=== PATIENT | male | born 1975 | race Caucasian/White ===

== ENCOUNTER 2016-10-20 18:57 | Emergency (ER) | payer SELFPAY ==
[2016-10-20 19:07] VITALS: BP 130/78
[2016-10-20 19:27] LABS: HEMATOCRIT 38.3 % (39.0-49.0); MEAN CELL VOLUME 87.7 fl (80-99); MEAN CORPUSCULAR HEMOGLOBIN 29.7 pg (26.0-30.0); MEAN CORPUSCULAR HGB CONC 33.8 pg (28.0-36.0); MEAN PLATELET VOLUME 6.8 fl; PLATELET COUNT 330 Th/cmm (150-400); RED BLOOD COUNT 4.37 Mil/cmm (4.30-5.70); RED CELL DISTRIBUTION WIDTH 17.2 % (11.5-20.0)
[2016-10-20 19:44] LABS: ALB/GLOB RATIO 1.6 (1.0-1.8); ALKALINE PHOSPHATASE 50 U/L (34-104); ANION GAP 7.1 (7.0-16.0); BILIRUBIN,TOTAL 0.3 mg/dL (0.3-1.0); BUN - UREA NITROGEN 5 mg/dL (7-25); BUN/CREATININE RATIO 7.1; CARBON DIOXIDE 26.5 mEq/L (21.0-31.0); CHLORIDE 102 mEq/L (98-107); CREATININE - SERUM 0.7 mg/dL (0.7-1.3); GLUCOSE 146 mg/dL (70-105); POTASSIUM SERUM 3.6 mEq/L (3.5-5.1); SGOT 22 U/L (13-39); SGPT/ALT 19 U/L (7-52); SODIUM SERUM 132 mEq/L (136-145)
[2016-10-20 19:48] LABS: WHITE BLOOD COUNT 20.5 Th/cmm (4.8-10.8)
[2016-10-20 20:11] LABS: BAND NEUTROPHILE 6 % (0-10); BASOPHIL 0 % (0-3); EOSINOPHIL 3 % (0-5); NEUTROPHILS 75 % (40-80); TOTAL CELLS COUNTED 100
[2016-10-20 20:12] LABS: PLATELET ESTIMATE ADEQUATE (NORMAL); PLATELET MORPHOLOGY NORMAL (NORMAL)
--- NOTE | 2016-10-20 20:20 | ED Physician Chart ---
Chief Complaint/HPI - Patient Information Date Seen:: 10/20/16 Time Seen:: 20:14 Chief Complaint:: etoh History of Present Illness:: pt brought in by ems for being etoh intoxicated in public. Was picked up at [facility] earlier said he had abd pain but now denies this and says he has had chest pain earlier but not now. details are very vague. no nausea. no vomiting. not sweaty. no radiation of pain. he is unable to tell me how he came to be in ED. pt admits to slight ammt of etoh today and recent pcp use. he is a smoker. knows of no cary pmh otherwise. Allergies:: Allergies Allergy/AdvReac Type Severity Reaction Status Date / Time Penicillins [PCN] AdvReac Verified 10/20/16 19:07 Vitals:: Vital Signs - 8 hr 10/20/16 10/20/16 19:07 19:08 Temp 97.8 F HR 106 RR 16 BP 130/78 130/78 O2 Sat % 97 Historian:: Patient Review of Systems - Review of Systems General/Constitutional: No fever, No chills, No weight loss, No weakness, No diaphoresis, No edema, No loss of appetite Skin: No skin lesions, No rash, No bruising Head: No headache, No light-headedness Eyes: No loss of vision, No pain, No diplopia ENT: No earache, No nasal drainage, No sore throat, No tinnitus Neck: No neck pain, No swelling, No thyromegaly, No stiffness, No mass noted Cardio Vascular: Chest pain (?), No chest pain, No palpitations, No PND, No orthopnea, No edema Pulmonary: No SOB, No cough, No sputum, No wheezing GI: No nausea, No vomiting, No diarrhea, No pain, No melena, No hematochezia, No constipation, No hematemesis G/U: No dysuria, No frequency, No hematuria Musculoskeletal: No bone or joint pain, No back pain, No muscle pain Endocrine: No polyuria, No polydipsia Psychiatric: No prior psych history, No depression, No anxiety, No suicidal ideation Hematopoietic: No bruising, No lymphadenopathy Allergic/Immuno: No urticaria, No angioedema Neurological: No syncope, No focal symptoms, No weakness, No paresthesia, No headache, No seizure, No dizziness, No confusion, No vertigo Past Medical History - Past Medical History Past Medical History: No significant medical hx Social History: Homeless Medication: Reviewed Family Medical History - Family Member Mother History Unknown: Yes Physical Exam - Physical Examination General/Constitutional: Awake, Well-developed, well-nourished, Alert, No distress, GCS 15, Non-toxic appearing, Ambulatory Other Gen/Cons comments:: pt alert and talkative. not great historian. he does not seem to be worried at all. strong odor of etoh. no edema. nrml s1s2 no m lungs clear w nonlabored breathing Head: Atraumatic Eyes: Lids, conjuctiva normal, PERRL, EOMI Skin: Nl inspection, No rash, No skin lesions, No ecchymosis, Well hydrated, No lymphadenopathy ENMT: External ears, nose nl, Nasal exam nl, Lips, teeth, gums nl Neck: Nontender, Full ROM w/o pain, No JVD, No nuchal rigidity, No bruit, No mass, No stridor Respiratory: Nl effort/Exclusion, Clear to Auscultation, No Wheeze/Rhonchi/Rales Cardio Vascular: RRR, No murmur, gallop, rubs, NL S1 S2 GI: No tenderness/rebounding/guarding, No organomegaly, No hernia, Normal BS's, Nondistended, No mass/bruits, No McBurney tenderness : No CVA tenderness Extremities: No tenderness or effusion, Full ROM, normal strength in all extremities, No edema, Normal digits & nails Neuro/Psych: Alert/oriented, DTR's symmetric, Normal sensory exam, Normal motor strength, Judgement/insight normal, Mood normal, Normal gait, No focal deficits Misc: normal gait, Normal back, No paraspinal tenderness Labs/Radiology/EKG Results - Lab Results Results: Laboratory Tests 10/20/16 10/20/16 10/20/16 19:20 19:20 19:20 WBC 20.5 H* RBC 4.37 Hgb 13.0 L Hct 38.3 L MCV 87.7 MCH 29.7 MCHC Differential 33.8 RDW 17.2 Plt Count 330 MPV 6.8 Neutrophils % Band Neutrophils % 6 Lymphocytes % Monocytes % Eosinophils % Basophils % Neutrophils (Manual) 75 Lymphocytes 8 L Monocytes 8 Eosinophils 3 Basophils 0 Platelet Estimate ADEQUATE Platelet Morphology NORMAL RBC Morph Micro Appear NORMAL Sodium 132 L Potassium 3.6 Chloride 102 Carbon Dioxide 26.5 Anion Gap 7.1 BUN 5 L Creatinine 0.7 Est GFR ( Amer) > 60.0 Est GFR (Non-Af Amer) > 60.0 BUN/Creatinine Ratio 7.1 Glucose 146 H Whole Bld Lactic Acid Calcium 9.0 Total Bilirubin 0.3 AST 22 ALT 19 Alkaline Phosphatase 50 Troponin I 0.01 Total Protein 6.7 Albumin 4.1 L Globulin 2.6 Albumin/Globulin Ratio 1.6 Urine Source Urine Color Urine Clarity Urine pH Ur Specific [place] Urine Protein Urine Glucose (UA) Urine Ketones Urine Blood Urine Nitrate Urine Bilirubin Urine Urobilinogen Ur Leukocyte Esterase Urine RBC Urine WBC Ur Epithelial Cells Urine Bacteria Urine Opiates Screen Urine Methadone Screen Ur Barbiturates Screen Ur Tricyclics Screen Ur Phencyclidine Scrn Amphetamines Screen U Methamphetamines Scrn U Benzodiazepines Scrn U Cocaine Metab Screen U Cannabinoids Screen Ethyl Alcohol 10/20/16 10/20/16 10/20/16 19:20 20:07 21:10 WBC RBC Hgb Hct MCV MCH MCHC Differential RDW Plt Count MPV Neutrophils % Band Neutrophils % Lymphocytes % Monocytes % Eosinophils % Basophils % Neutrophils (Manual) Lymphocytes Monocytes Eosinophils Basophils Platelet Estimate Platelet Morphology RBC Morph Micro Appear Sodium Potassium Chloride Carbon Dioxide Anion Gap BUN Creatinine Est GFR ( Amer) Est GFR (Non-Af Amer) BUN/Creatinine Ratio Glucose Whole Bld Lactic Acid 2.18 H* Calcium Total Bilirubin AST ALT Alkaline Phosphatase Troponin I Total Protein Albumin Globulin Albumin/Globulin Ratio Urine Source Urine Color Urine Clarity Urine pH Ur Specific [place] Urine Protein Urine Glucose (UA) Urine Ketones Urine Blood Urine Nitrate Urine Bilirubin Urine Urobilinogen Ur Leukocyte Esterase Urine RBC Urine WBC Ur Epithelial Cells Urine Bacteria Urine Opiates Screen Urine Methadone Screen Ur Barbiturates Screen Ur Tricyclics Screen Ur Phencyclidine Scrn Amphetamines Screen U Methamphetamines Scrn U Benzodiazepines Scrn U Cocaine Metab Screen U Cannabinoids Screen Ethyl Alcohol < 10 343 H 10/20/16 10/21/16 10/21/16 22:16 00:45 00:45 WBC RBC Hgb Hct MCV MCH MCHC Differential RDW Plt Count MPV Neutrophils % Band Neutrophils % Lymphocytes % Monocytes % Eosinophils % Basophils % Neutrophils (Manual) Lymphocytes Monocytes Eosinophils Basophils Platelet Estimate Platelet Morphology RBC Morph Micro Appear Sodium Potassium Chloride Carbon Dioxide Anion Gap BUN Creatinine Est GFR ( Amer) Est GFR (Non-Af Amer) BUN/Creatinine Ratio Glucose Whole Bld Lactic Acid 2.31 H* Calcium Total Bilirubin AST ALT Alkaline Phosphatase Troponin I Total Protein Albumin Globulin Albumin/Globulin Ratio Urine Source CLEAN C Urine Color YELLOW Urine Clarity CLEAR Urine pH 5.5 Ur Specific [place] 1.53303 L Urine Protein NEGATIVE Urine Glucose (UA) NEGATIVE Urine Ketones NEGATIVE Urine Blood NEGATIVE Urine Nitrate NEGATIVE Urine Bilirubin NEGATIVE Urine Urobilinogen 0.2 Ur Leukocyte Esterase TRACE H Urine RBC 0-2 H Urine WBC 0-2 Ur Epithelial Cells OCCASIONAL Urine Bacteria MODERATE Urine Opiates Screen NEGATIVE Urine Methadone Screen NEGATIVE Ur Barbiturates Screen NEGATIVE Ur Tricyclics Screen NEGATIVE Ur Phencyclidine Scrn NEGATIVE Amphetamines Screen NEGATIVE U Methamphetamines Scrn NEGATIVE U Benzodiazepines Scrn NEGATIVE U Cocaine Metab Screen NEGATIVE U Cannabinoids Screen POSITIVE H Ethyl Alcohol 10/21/16 10/21/16 10/21/16 05:06 05:06 05:06 WBC 19.4 H RBC 4.30 Hgb 12.8 L Hct 37.9 L MCV 88.1 MCH 29.7 MCHC Differential 33.7 RDW 16.9 Plt Count 322 MPV 6.9 Neutrophils % 78.0 Band Neutrophils % Lymphocytes % 10.2 L Monocytes % 9.3 Eosinophils % 2.5 Basophils % 0.0 Neutrophils (Manual) Lymphocytes Monocytes Eosinophils Basophils Platelet Estimate Platelet Morphology RBC Morph Micro Appear Sodium Potassium Chloride Carbon Dioxide Anion Gap BUN Creatinine Est GFR ( Amer) Est GFR (Non-Af Amer) BUN/Creatinine Ratio Glucose Whole Bld Lactic Acid Calcium Total Bilirubin AST ALT Alkaline Phosphatase Troponin I 0.01 Total Protein Albumin Globulin Albumin/Globulin Ratio Urine Source Urine Color Urine Clarity Urine pH Ur Specific [place] Urine Protein Urine Glucose (UA) Urine Ketones Urine Blood Urine Nitrate Urine Bilirubin Urine Urobilinogen Ur Leukocyte Esterase Urine RBC Urine WBC Ur Epithelial Cells Urine Bacteria Urine Opiates Screen Urine Methadone Screen Ur Barbiturates Screen Ur Tricyclics Screen Ur Phencyclidine Scrn Amphetamines Screen U Methamphetamines Scrn U Benzodiazepines Scrn U Cocaine Metab Screen U Cannabinoids Screen Ethyl Alcohol 142 H - Radiology Results Results: cxr nad - EKG Interpretations EKG Time:: 20:25 Rate & Rhythm: nsr 96 [place]: 73 Intervals: nrml Comments:: no st/t wave changes ED Septic Shock - . Is Septic Shock (SBP<90, OR Lactate>4 mmol\L) present?: No - <6hrs of presentation: Vital Signs: Vital Signs - 8 hr 10/20/16 10/20/16 19:07 19:08 Temp 97.8 F HR 106 RR 16 BP 130/78 130/78 O2 Sat % 97 Reassessment (Disposition) - Reassessment Reassessment:: pt had redraw labs at 5am. he was alert and saying he felt ok and I saw him briefly then ...stable w vss. pt ate breakfast and then was walking and said he felt ok and eloped. I was not aware he had left. I have reviewed the 5am labs and trop remains nrml. wbc persists high but sltly better 19k...unclear why so elevated but we did obtain a sousa including blood cx. cxr nrml, ua mild uti (was given rx for which i had written earlier). Reassessment Condition:: Improved - Diagnosis Diagnosis:: 1 etoh intoxication 2 uti - Aftercare/Follow up Instructions Medication Prescribed:: rx macrobid 100bid x 1 wk for uti. advise pt seek help through [facility] or other agency for etoh addiction. rest. see pmd this week for rechk. return if worse. - Patient Disposition Discharge/Transfer:: Elope/AWOL Condition at Disposition:: Improved ED Discharge Plan - Patient Disposition Instructions: Alcohol Intoxication, [id number], Urinary Tract Infection, Easy -to-Read Additional Instructions: STOP DRINKING ALCOHOLIC BEVERAGES take prescribed medications as ordered keep drinking plenty of water to keep urine clear or pale yellow
[2016-10-20] MEDS: Sodium Chloride 0.9% 1,000 ML IV ONE (20:43)
[2016-10-21 01:06] LABS: AMPHETAMINE URINE NEGATIVE (NEGATIVE); BARBITURATES URINE NEGATIVE (NEGATIVE)
[2016-10-21 01:07] LABS: METHADONE URINE NEGATIVE (NEGATIVE)
[2016-10-21 01:15] LABS: URINE BACTERIA MODERATE /hpf (NONE SEEN); URINE BILIRUBIN NEGATIVE (NEGATIVE); URINE BLOOD NEGATIVE (NEGATIVE); URINE COLOR YELLOW; URINE EPITHELIAL CELLS OCCASIONAL /lpf (FEW); URINE GLUCOSE (UA) NEGATIVE (NEGATIVE); URINE KETONE NEGATIVE (NEGATIVE); URINE PH 5.5; URINE PROTEIN NEGATIVE (NEGATIVE); URINE RBC 0-2 /hpf (0-5); URINE UROBILINOGEN 0.2 E.U./dL (0.2 - 1.0); URINE WBC 0-2 /hpf (0-5)
[2016-10-21 05:15] LABS: % EOSINOPHILS 2.5 % (0.0-5.0); % LYMPHOCYTES 10.2 % (20.0-50.0); % MONOCYTES 9.3 % (2.0-10.0); HEMATOCRIT 37.9 % (39.0-49.0); HEMOGLOBIN 12.8 gm/dL (13.2-17.3); MEAN CELL VOLUME 88.1 fl (80-99); MEAN CORPUSCULAR HEMOGLOBIN 29.7 pg (26.0-30.0); MEAN CORPUSCULAR HGB CONC 33.7 pg (28.0-36.0); MEAN PLATELET VOLUME 6.9 fl; NEUTROPHILE ABSOLUTE 15.1 Th/cmm (1.8-8.0); PLATELET COUNT 322 Th/cmm (150-400); RED CELL DISTRIBUTION WIDTH 16.9 % (11.5-20.0)
[2016-10-21 05:27] LABS: WHITE BLOOD COUNT 19.4 Th/cmm (4.8-10.8)
--- NOTE | 2016-10-21 08:28 | Diagnostic Imaging Report ---
Portable chest x-ray History: Pain Allowing for portable technique the heart size is normal. No focal pulmonary parenchymal processes. No hilar or mediastinal abnormalities. Impression: No acute abnormalities.
== END 2016-10-21 06:00 | disposition home or self-care (01) ==
LOC: ER 18:57
DX: F10.129 Alcohol abuse with intoxication, unspecified (principal); N39.0 Urinary tract infection, site not specified; F17.200 Nicotine dependence, unspecified, uncomplicated; Z88.0 Allergy status to penicillin; Z59.0 Homelessness
CPT/HCPCS: 99285; 96374; 93005; 71010; 84484 ×2; 36415 ×2; 83605 ×2; 80307; 85007; 85027; 85025; 81001; 80320 ×3; 80053; 87040; J2405; J7030

== ENCOUNTER 2016-10-21 18:32 | Emergency (ER) | payer SELFPAY ==
[2016-10-21] MEDS ORDERED: Multivitamin Inj 10 ML, Thiamine HCL 100 MG, Magnesium Sulfate 2 GM, Folic Acid 1 MG in... IV ONE ×2 (18:53→19:24)
--- NOTE | 2016-10-21 19:00 | ED Physician Chart ---
Chief Complaint/HPI - Patient Information Date Seen:: 10/21/16 Time Seen:: 18:45 Chief Complaint:: altered mental status History of Present Illness:: [place] He states he drank 3 40 ounce containers of beer today. Patient complained of abdominal pain to the licensed funeral director but stated here he had at most very mild epigastric pain. Patient was here a couple days ago for apparently alcohol intoxication and was given 1 L of normal saline intravenously. Patient is homeless. Allergies:: Allergies Allergy/AdvReac Type Severity Reaction Status Date / Time Penicillins [PCN] AdvReac Verified 10/21/16 18:41 Vitals:: Vital Signs - 8 hr 10/21/16 18:32 Temp 98.0 F HR 107 RR 16 BP 131/82 O2 Sat % 98 Historian:: Patient, EMS Review:: Nurse's Note Reviewed Review of Systems - Review of Systems General/Constitutional: No fever, No chills Skin: No skin lesions Head: No headache Eyes: No loss of vision ENT: No earache Neck: No neck pain, No swelling Cardio Vascular: No chest pain, No palpitations Pulmonary: No SOB GI: No nausea, No vomiting, No diarrhea G/U: No dysuria Musculoskeletal: No bone or joint pain, No back pain, No muscle pain Endocrine: No polyuria, No polydipsia Psychiatric: No prior psych history, Other Hematopoietic: No bruising Allergic/Immuno: No urticaria Neurological: No syncope, No focal symptoms Past Medical History - Past Medical History Past Medical History: No significant medical hx Family History: None Social History: Smoker, Alcohol Surgical History: Hernia, other (left inguinal hernia repair) Psychiatricy History: None Medication: None Family Medical History - Family Member Mother History Unknown: Yes Physical Exam - Physical Examination General/Constitutional: Well-developed, well-nourished, Alert, No distress Head: Atraumatic Eyes: Lids, conjuctiva normal, PERRL Skin: Nl inspection, No rash, No skin lesions, No ecchymosis ENMT: External ears, nose nl, TM canals nl, Nasal exam nl, Lips, teeth, gums nl Neck: Nontender Respiratory: Nl effort/Exclusion, Clear to Auscultation, No Wheeze/Rhonchi/Rales Cardio Vascular: RRR, No murmur, gallop, rubs GI: No organomegaly, Normal BS's, Nondistended, No mass/bruits, No McBurney tenderness Other GI comments:: Minimal epigastric tenderness : No CVA tenderness Extremities: No tenderness or effusion, No edema ED Septic Shock - . Is Septic Shock (SBP<90, OR Lactate>4 mmol\L) present?: No - <6hrs of presentation: Vital Signs: Vital Signs - 8 hr 10/21/16 18:32 Temp 98.0 F HR 107 RR 16 BP 131/82 O2 Sat % 98 Reassessment (Disposition) - Reassessment Reassessment Condition:: Improved - Diagnosis Diagnosis:: Acute and chronic alcohol abuse; alcohol intoxication - Aftercare/Follow up Instructions Aftercare/Follow-Up Instructions:: Refer to Discharge Instructions - Patient Disposition Discharge/Transfer:: Home Condition at Disposition:: Stable, Improved
[2016-10-21] MEDS ORDERED: Thiamine 100 mg/mL 2mL Vial ONE (19:12)
[2016-10-21] MEDS ORDERED: Multivitamin Inj 10 mL Vial IV ONE (19:12)
[2016-10-21] MEDS ORDERED: Magnesium Sulfate 1 gm/2 mL 2mL Vial IV ONE (19:13)
[2016-10-21 20:07] LABS: % BASOPHILS 1.4 % (0.0-2.0); % EOSINOPHILS 3.7 % (0.0-5.0); % LYMPHOCYTES 17.6 % (20.0-50.0); % MONOCYTES 7.2 % (2.0-10.0); % NEUTROPHILS 70.1 % (40.0-80.0); HEMATOCRIT 35.5 % (39.0-49.0); HEMOGLOBIN 12.2 gm/dL (13.2-17.3); MEAN CELL VOLUME 85.9 fl (80-99); MEAN CORPUSCULAR HEMOGLOBIN 29.6 pg (26.0-30.0); MEAN CORPUSCULAR HGB CONC 34.5 pg (28.0-36.0); MEAN PLATELET VOLUME 6.7 fl; NEUTROPHILE ABSOLUTE 10.9 Th/cmm (1.8-8.0); PLATELET COUNT 315 Th/cmm (150-400); RED BLOOD COUNT 4.13 Mil/cmm (4.30-5.70)
[2016-10-21 20:11] LABS: WHITE BLOOD COUNT 15.5 Th/cmm (4.8-10.8)
[2016-10-21 20:18] LABS: ANION GAP 7.5 (7.0-16.0); BUN - UREA NITROGEN 7 mg/dL (7-25); BUN/CREATININE RATIO 11.7; CHLORIDE 105 mEq/L (98-107); CREATININE - SERUM 0.6 mg/dL (0.7-1.3); GLUCOSE 120 mg/dL (70-105); MAGNESIUM 2.2 mg/dL (1.9-2.7); POTASSIUM SERUM 3.5 mEq/L (3.5-5.1); SODIUM SERUM 134 mEq/L (136-145)
== END 2016-10-22 06:45 | disposition home or self-care (01) ==
LOC: ER 18:32
DX: F10.129 Alcohol abuse with intoxication, unspecified (principal); F17.200 Nicotine dependence, unspecified, uncomplicated; Z88.0 Allergy status to penicillin; Z59.0 Homelessness
CPT/HCPCS: 99285; 96365; 96366; 36415; 83605; 85025; 80320; 83690; 83735; 80048; J3411; J3475; J7030; X6226; X6598; Z7502

== ENCOUNTER 2016-10-22 19:01 | Emergency (ER) | payer SELFPAY ==
[2016-10-22 19:37] LABS: % BASOPHILS 1.6 % (0.0-2.0); % EOSINOPHILS 5.9 % (0.0-5.0); % LYMPHOCYTES 23.9 % (20.0-50.0); % MONOCYTES 4.8 % (2.0-10.0); % NEUTROPHILS 63.8 % (40.0-80.0); HEMATOCRIT 38.4 % (39.0-49.0); HEMOGLOBIN 12.9 gm/dL (13.2-17.3); MEAN CELL VOLUME 88.4 fl (80-99); MEAN CORPUSCULAR HEMOGLOBIN 29.7 pg (26.0-30.0); MEAN CORPUSCULAR HGB CONC 33.6 pg (28.0-36.0); MEAN PLATELET VOLUME 6.7 fl; NEUTROPHILE ABSOLUTE 7.1 Th/cmm (1.8-8.0); PLATELET COUNT 318 Th/cmm (150-400); RED BLOOD COUNT 4.35 Mil/cmm (4.30-5.70)
[2016-10-22 19:47] LABS: INR 0.89 (0.5-1.4); PROTHROMBIN TIME (TEST) 9.1 SECONDS (9.5-11.5)
[2016-10-22 19:50] LABS: WHITE BLOOD COUNT 11.2 Th/cmm (4.8-10.8)
[2016-10-22 19:51] LABS: ALB/GLOB RATIO 1.4 (1.0-1.8); ALKALINE PHOSPHATASE 60 U/L (34-104); ANION GAP 8.1 (7.0-16.0); BILIRUBIN,TOTAL 0.3 mg/dL (0.3-1.0); BUN - UREA NITROGEN 5 mg/dL (7-25); BUN/CREATININE RATIO 8.3; CARBON DIOXIDE 26.6 mEq/L (21.0-31.0); CHLORIDE 105 mEq/L (98-107); CREATININE - SERUM 0.6 mg/dL (0.7-1.3); GLUCOSE 99 mg/dL (70-105); POTASSIUM SERUM 3.7 mEq/L (3.5-5.1); SGOT 18 U/L (13-39); SGPT/ALT 15 U/L (7-52); SODIUM SERUM 136 mEq/L (136-145)
--- NOTE | 2016-10-22 19:56 | ED Physician Chart ---
Chief Complaint/HPI - Patient Information Date Seen:: 10/22/16 Time Seen:: 19:31 Chief Complaint:: ABDOMINAL PAIN History of Present Illness:: THIS IS AN ALCOHOLIC THAT WAS FOUND DOWN IN FRONT OF [employer] [facility] AND INTOXICATED WITH ALCOHOL C/O ABDOMINAL PAIN. THIS PATIENT WAS HERE LAST NIGHT WITH THE SAME PROBLEM AND DISCHARGED THIS AM. HE IS UNRELIABLE AND THE HISTORY WITH REVIEW OF SYSTEMS ARE NO POSSIBLE AT THIS TIME. Allergies:: Allergies Allergy/AdvReac Type Severity Reaction Status Date / Time Penicillins [PCN] AdvReac Verified 10/21/16 18:41 Vitals:: Vital Signs - 8 hr 10/22/16 19:26 Temp 98.0 F HR 85 RR 20 BP 119/80 O2 Sat % 93 Historian:: Patient, EMS Review:: Nurse's Note Reviewed Review of Systems - Review of Systems General/Constitutional: No fever, No chills, No weight loss, No weakness, No diaphoresis, No edema, No loss of appetite, Other (PT CANNOT ) Skin: No skin lesions, No rash, No bruising Head: No headache, No light-headedness Eyes: No loss of vision, No pain, No diplopia ENT: No earache, No nasal drainage, No sore throat, No tinnitus Neck: No neck pain, No swelling, No thyromegaly, No stiffness, No mass noted Cardio Vascular: No chest pain, No palpitations, No PND, No orthopnea, No edema Pulmonary: No SOB, No cough, No sputum, No wheezing GI: No nausea, No vomiting, No diarrhea, No pain, No melena, No hematochezia, No constipation, No hematemesis G/U: No dysuria, No frequency, No hematuria Musculoskeletal: No bone or joint pain, No back pain, No muscle pain Endocrine: No polyuria, No polydipsia Psychiatric: No prior psych history, No depression, No anxiety, No suicidal ideation Hematopoietic: No bruising, No lymphadenopathy Allergic/Immuno: No urticaria, No angioedema Neurological: No syncope, No focal symptoms, No weakness, No paresthesia, No headache, No seizure, No dizziness, No confusion, No vertigo Past Medical History - Past Medical History Obtainable: No Family Medical History - Family Member Mother History Unknown: Yes Physical Exam - Physical Examination General/Constitutional: Well-developed, well-nourished, Alert, No distress, GCS 15, Non-toxic appearing, Ambulatory Other Gen/Cons comments:: LETHARGIC AND DISORIENTED. Head: Atraumatic Eyes: Lids, conjuctiva normal, PERRL, EOMI Skin: Nl inspection, No rash, No skin lesions, No ecchymosis, Well hydrated, No lymphadenopathy ENMT: External ears, nose nl, Nasal exam nl, Lips, teeth, gums nl Neck: Nontender, Full ROM w/o pain, No JVD, No nuchal rigidity, No bruit, No mass, No stridor Respiratory: Nl effort/Exclusion, Clear to Auscultation, No Wheeze/Rhonchi/Rales Cardio Vascular: RRR, No murmur, gallop, rubs, NL S1 S2 GI: No tenderness/rebounding/guarding, No organomegaly, No hernia, Normal BS's, Nondistended, No mass/bruits, No McBurney tenderness : No CVA tenderness Extremities: No tenderness or effusion, Full ROM, normal strength in all extremities, No edema, Normal digits & nails Neuro/Psych: Alert/oriented, DTR's symmetric, Normal sensory exam, Normal motor strength, Judgement/insight normal, Mood normal, Normal gait, No focal deficits Misc: normal gait, Normal back, No paraspinal tenderness Labs/Radiology/EKG Results - Lab Results Results: Laboratory Tests 10/22/16 19:28 WBC 11.2 H D RBC 4.35 Hgb 12.9 L Hct 38.4 L MCV 88.4 MCH 29.7 MCHC Differential 33.6 RDW 17.0 Plt Count 318 MPV 6.7 Neutrophils % 63.8 Lymphocytes % 23.9 Monocytes % 4.8 Eosinophils % 5.9 H Basophils % 1.6 Assessment - Assessment General Assessment: this patient has improved after sleeping all night and is able to walk and think well enough to go home this am. ED Septic Shock - . Is Septic Shock (SBP<90, OR Lactate>4 mmol\L) present?: No - <6hrs of presentation: Vital Signs: Vital Signs - 8 hr 10/22/16 19:26 Temp 98.0 F HR 85 RR 20 BP 119/80 O2 Sat % 93 Reassessment (Disposition) - Reassessment Reassessment Condition:: Improved - Diagnosis Diagnosis:: alcohol intoxication - Aftercare/Follow up Instructions Aftercare/Follow-Up Instructions:: Counseled pt regarding lab results/diagnosis & need follow up, Refer to Discharge Instructions, Counseled pt & family regarding lab results/diagnosis & need follow up - Patient Disposition Discharge/Transfer:: Home Condition at Disposition:: Improved
== END 2016-10-23 07:50 | disposition left against medical advice (07) ==
LOC: ER 19:01
DX: F10.129 Alcohol abuse with intoxication, unspecified (principal); Z88.0 Allergy status to penicillin; Z59.0 Homelessness
CPT/HCPCS: 36415-UA; 80053-TC; 80320-TC; 84484-TC; 85025-TC; 85610-TC; Z7502

== ENCOUNTER 2016-10-23 16:52 | Emergency (ER) | payer SELFPAY ==
[2016-10-23 17:02] VITALS: BP 118/84
--- NOTE | 2016-10-23 17:29 | ED Physician Chart ---
Chief Complaint/HPI - Patient Information Date Seen:: 10/23/16 Time Seen:: 17:15 Chief Complaint:: occasional pain with urination today History of Present Illness:: Patient is brought back to the emergency room by ambulance for complaint of occasional burning with urination. he was seen earlier in the emergency room today for alcohol intoxication and he remains intoxicated at this presentation. He is able to converse however he is scant on detail. He denies any and all other symptoms except for "I was told I have a urinary tract infection when I was in the emergency room and it posadas when I pee sometimes". Review of prior charting during prior exam today does not reveal any evaluation for urinary tract infection on the prior presentation. Allergies:: Allergies Allergy/AdvReac Type Severity Reaction Status Date / Time Penicillins [PCN] AdvReac Verified 10/21/16 18:41 Vitals:: Vital Signs - 8 hr 10/23/16 10/23/16 17:02 17:04 Temp 98.9 F HR 100 RR 17 BP 118/84 118/84 O2 Sat % 96 Historian:: Patient, EMS, Medical Records Review:: Nurse's Note Reviewed, Old Chart Reviewed Review of Systems - Review of Systems General/Constitutional: Fever (the patient denies any other complaint other than occasional pain with urination. Specifically he denies fever chills prior STD urethral discharge unusual rashes back pain or history of UTI or urethral instrumentation.) Past Medical History - Past Medical History Obtainable: No (patient has altered mental status for mild alcohol intoxication) Social History: Homeless Family Medical History - Family Member Mother History Unknown: Yes Physical Exam - Physical Examination General/Constitutional: Awake, Well-developed, well-nourished, Alert, No distress, GCS 15 Head: Atraumatic Eyes: Lids, conjuctiva normal, EOMI Skin: Nl inspection ENMT: Oropharynx nl Neck: Full ROM w/o pain Respiratory: Clear to Auscultation Cardio Vascular: RRR GI: No tenderness/rebounding/guarding, No hernia, Normal BS's, Nondistended : NL external genitalia, No discharge Extremities: Full ROM Neuro/Psych: Alert/oriented ([id number] alcohol intoxication) Labs/Radiology/EKG Results - Lab Results Results: Urinalysis with small amount of leukocyte esterase and 6-10 WBCs with rare epithelial cells and few bacteria. Comments:: Medical decision making: Patient's urinalysis is remarkable for small amount of leukocyte esterase and 10 WBCs. Patient states that he is not sexually active and does not have any of the other features of an STD. I have elected to culture the patient's urine in light of the minor discrepancies, the patient's unreliable nature which precludes filling of an antibiotic prescription reliably , and the likelihood that he will return to our emergency department in the near future at which time we can have the culture results available to direct definitive treatment if needed. I do not feel it is appropriate to treat this patient with a standard one time emergency department regimen of antibiotics. Assessment - Assessment General Assessment: Assessment: Intermittent dysuria of unknown duration with minor abnormalities on urinalysis. Will await urine culture results and attempt to contact patient if positive for UTI. #2 mild chronic alcohol intoxication. ED Septic Shock - . Is Septic Shock (SBP<90, OR Lactate>4 mmol\\L) present?: No - <6hrs of presentation: Vital Signs: Vital Signs - 8 hr 10/23/16 10/23/16 17:02 17:04 Temp 98.9 F HR 100 RR 17 BP 118/84 118/84 O2 Sat % 96 Reassessment (Disposition) - Reassessment Reassessment:: Medical decision making: Mild to moderately alcohol intoxicated patient returns to the emergency room after recent visit and overnight stay. Patient states that he was told he had a urinary tract infection but this is not borne out by review of the medical record. Patient states that he occasionally has dysuria with urination however the patient is unable to reliably describe the quantity quality, severity, duration, or any other symptoms associated with this occasional pain with urination. Physical exam is completely normal other than alcohol intoxication. I will obtain a urinalysis and an attempt to delineate this patient's problems. Reassessment Condition:: Unchanged - Aftercare/Follow up Instructions Aftercare/Follow-Up Instructions:: Counseled pt regarding lab results/diagnosis & need follow up - Patient Disposition Discharge/Transfer:: Home Condition at Disposition:: Unchanged ED Discharge Plan - Patient Disposition Instructions: Dysuria Accepting Physician: rOlin Thrasher [Courtesy] - 1-3 Days
[2016-10-23 18:10] LABS: URINE BILIRUBIN NEGATIVE (NEGATIVE); URINE COLOR YELLOW; URINE GLUCOSE (UA) NEGATIVE (NEGATIVE); URINE KETONE NEGATIVE (NEGATIVE)
[2016-10-23 18:11] LABS: URINE BLOOD NEGATIVE (NEGATIVE); URINE PROTEIN NEGATIVE (NEGATIVE); URINE UROBILINOGEN 0.2 E.U./dL (0.2 - 1.0)
[2016-10-23 18:12] LABS: URINE BACTERIA FEW /hpf (NONE SEEN); URINE EPITHELIAL CELLS RARE /lpf (FEW); URINE RBC NONE SEEN /hpf (0-5)
== END 2016-10-23 18:30 | disposition home or self-care (01) ==
LOC: ER 16:52
DX: F10.129 Alcohol abuse with intoxication, unspecified (principal); R30.0 Dysuria; Z88.0 Allergy status to penicillin; Z59.0 Homelessness
CPT/HCPCS: 81001-TC; 87086-90; Z7502

== ENCOUNTER 2016-10-25 02:59 | Emergency (ER) | payer SELFPAY ==
--- NOTE | 2016-10-25 03:39 | ED Physician Chart ---
Chief Complaint/HPI - Patient Information Date Seen:: 10/25/16 Time Seen:: 03:30 Chief Complaint:: Alcohol intoxication. History of Present Illness:: Pt walked in this ER after he has been intoxicated with alcohol. Pt has had multiple ER visits recently. Pt now c/o intermittent epigastric pain since about noon yesterday, precipitated and worsened with ethanol use. Pt had transient N/V earlier at about noon yesterday with vomitus consists of gastric content. No hematemesis. Last BM at about 10 am yesterday, normal in color, slightly loose. No hematochezia or melena. Pt does not give consistent hx and is not fully cooperative; thus, H & P are limited. Allergies:: Allergies Allergy/AdvReac Type Severity Reaction Status Date / Time Penicillins [PCN] AdvReac Verified 10/21/16 18:41 Vitals:: Vital Signs - 8 hr 10/25/16 03:00 Temp 98.0 F HR 79 RR 19 BP 125/85 O2 Sat % 100 Historian:: Patient Family MD/PCP:: unknown LMP:: N/A Review:: Nurse's Note Reviewed Review of Systems - Review of Systems General/Constitutional: Other (Pt does not cooperate for ROS.) Past Medical History - Past Medical History Past Medical History: Other (alcoholic liver disease.) Family History: Other (Pt does not cooperate to provide info on FHx.) Social History: Alcohol (Pt does not cooperate to provide info on SHx), Other ( Pt does not cooperate to provide info on SHx.) Surgical History: other (Pt does not cooperate to provide info on Surgical Hx.) Psychiatricy History: None Medication: Reviewed Family Medical History - Family Member Mother History Unknown: Yes Physical Exam - Physical Examination General/Constitutional: Awake, Well-developed, well-nourished, Alert, No distress, Ambulatory Other Gen/Cons comments:: Breathes comfortably, speaks clearly, and ambulates without difficulty. Pt prefers to sleep and does not cooperate fully. Head: Atraumatic Eyes: Lids, conjuctiva normal, PERRL, EOMI Skin: Well hydrated, No lymphadenopathy ENMT: External ears, nose nl, Nasal exam nl, Oropharynx nl Neck: Nontender, Full ROM w/o pain, No JVD, No nuchal rigidity, No mass, No stridor Respiratory: Nl effort/Exclusion, Clear to Auscultation, No Wheeze/Rhonchi/Rales Cardio Vascular: RRR, No murmur, gallop, rubs GI: No organomegaly, No hernia, Normal BS's, Nondistended, No mass/bruits, No McBurney tenderness Other GI comments:: Abdomen is soft with vague tenderness at epigastric region. No R/G. : No CVA tenderness Extremities: No edema Neuro/Psych: Alert/oriented (oriented x 3), No focal deficits Labs/Radiology/EKG Results - Lab Results Results: Laboratory Tests 10/25/16 10/25/16 10/25/16 03:53 03:53 03:53 WBC 11.6 H RBC 4.35 Hgb 13.0 L Hct 38.1 L MCV 87.6 MCH 30.0 MCHC Differential 34.2 RDW 17.3 Plt Count 302 MPV 6.8 Neutrophils % 73.9 Lymphocytes % 13.2 L Monocytes % 7.3 Eosinophils % 4.1 Basophils % 1.5 PT 9.9 INR 0.95 PTT (Actin FS) 26.2 Sodium 135 L Potassium 3.2 L Chloride 100 Carbon Dioxide 27.3 Anion Gap 10.9 BUN 7 Creatinine 0.6 L Est GFR ( Amer) > 60.0 Est GFR (Non-Af Amer) > 60.0 BUN/Creatinine Ratio 11.7 Glucose 91 Calcium 9.1 Total Bilirubin 0.4 AST 21 ALT 16 Alkaline Phosphatase 65 Total Protein 6.9 Albumin 4.0 L Globulin 2.9 Albumin/Globulin Ratio 1.4 Amylase 21 L Lipase 33 Ethyl Alcohol 91 H - Radiology Results Results: Abdominal CT without contrast: Probable sludge in the gallbladder. Nonspecific coarse calcification in the region of the uncinate proces of pancreas. No free air or free fluid in the abdomen. No renal calcification or hydronephrosis. Nonspecific bowel gas pattern in the visualized small and large bowel. Normal appendix. Official report per Dr. Marjorie He, radiologist. ED Septic Shock - . Is Septic Shock (SBP<90, OR Lactate>4 mmol\L) present?: No - <6hrs of presentation: Vital Signs: Vital Signs - 8 hr 10/25/16 03:00 Temp 98.0 F HR 79 RR 19 BP 125/85 O2 Sat % 100 Reassessment (Disposition) - Reassessment Reassessment:: 0645 Pt has slept well. Pt denies any headache, abdominal pain, or other bodily pain or discomfort. Lab and CT findings have been reviewed with pt. Pt requests to leave now. Aftercare instructions given. Reassessment Condition:: Improved - Diagnosis Diagnosis:: h/o alcoholism with alcoholic intoxication, resolving and stable. Transient epigastric pain c/w acute gastritis related to alcohol use, resolved and currently asymptomatic. - Aftercare/Follow up Instructions Aftercare/Follow-Up Instructions:: Refer to Discharge Instructions Notes:: Pt has been advised to stop alcohol abuse and to enroll in an alcohol detox program. Increase oral intake of potassium rich foodstuffs such as banana, etc. Avoid greasy/spicy food, dairy products, caffeine, alcohol, tobacco, ASA, NSAID' s, etc. Abdominal pain instructions given. F/U with Dr. Quick or PCP of pt's choice in one day for recheck with repeat lab studies: CBC, CMP. Return to ER immediately if condition worsens or if any further questions/problems. Medication Prescribed:: Ranitidine 150 mg tab one tab po q12h as directed. D-20 R-0 - Patient Disposition Discharge/Transfer:: Home Time:: 06:50 Condition at Disposition:: Stable, Improved ED Discharge Plan - Patient Disposition Instructions: Alcohol Intoxication, [id number] Additional Instructions: STOP DRINKING ALCOHOLIC BEVERAGES
[2016-10-25] MEDS ORDERED: Multivitamin Inj 10 ML, Thiamine HCL 100 MG, Magnesium Sulfate 2 GM, Folic Acid 1 MG in... IV ONE (03:42)
[2016-10-25 04:05] LABS: % BASOPHILS 1.5 % (0.0-2.0); % EOSINOPHILS 4.1 % (0.0-5.0); % LYMPHOCYTES 13.2 % (20.0-50.0); % MONOCYTES 7.3 % (2.0-10.0); % NEUTROPHILS 73.9 % (40.0-80.0); HEMATOCRIT 38.1 % (39.0-49.0); MEAN CELL VOLUME 87.6 fl (80-99); MEAN CORPUSCULAR HGB CONC 34.2 pg (28.0-36.0); MEAN PLATELET VOLUME 6.8 fl; NEUTROPHILE ABSOLUTE 8.6 Th/cmm (1.8-8.0); PLATELET COUNT 302 Th/cmm (150-400); RED BLOOD COUNT 4.35 Mil/cmm (4.30-5.70); RED CELL DISTRIBUTION WIDTH 17.3 % (11.5-20.0); WHITE BLOOD COUNT 11.6 Th/cmm (4.8-10.8)
[2016-10-25] MEDS ORDERED: Magnesium Sulfate 1 gm/2 mL 2mL Vial IV ONE (04:07)
[2016-10-25] MEDS ORDERED: Thiamine 100 mg/mL 2mL Vial ONE (04:07)
[2016-10-25] MEDS ORDERED: Sodium Chloride 0.9% 1,000 ML IV ONE (04:08)
[2016-10-25] MEDS ORDERED: Multivitamin Inj 10 mL Vial IV ONE (04:10)
[2016-10-25 04:12] LABS: INR 0.95 (0.5-1.4); PROTHROMBIN TIME (TEST) 9.9 SECONDS (9.5-11.5)
[2016-10-25 04:27] LABS: ALB/GLOB RATIO 1.4 (1.0-1.8); ALKALINE PHOSPHATASE 65 U/L (34-104); AMYLASE SERUM 21 U/L (29-103); ANION GAP 10.9 (7.0-16.0); BILIRUBIN,TOTAL 0.4 mg/dL (0.3-1.0); BUN - UREA NITROGEN 7 mg/dL (7-25); BUN/CREATININE RATIO 11.7; CALCIUM SERUM 9.1 mg/dL (8.6-10.3); CARBON DIOXIDE 27.3 mEq/L (21.0-31.0); CHLORIDE 100 mEq/L (98-107); CREATININE - SERUM 0.6 mg/dL (0.7-1.3); GLUCOSE 91 mg/dL (70-105); LIPASE 33 U/L (11-82); POTASSIUM SERUM 3.2 mEq/L (3.5-5.1); SGOT 21 U/L (13-39); SGPT/ALT 16 U/L (7-52); SODIUM SERUM 135 mEq/L (136-145)
[2016-10-25] MEDS ORDERED: Potassium Chloride 20 mEq ER Tab PO ONE ×2 (06:31→06:45)
--- NOTE | 2016-10-25 11:26 | Diagnostic Imaging Report ---
CT abdomen without contrast Indication: Abdominal pain. CT abdomen only was performed per team request. Comparison: None, Technique: Axial images were obtained from the lung bases to the bilateral iliac crests without IV contrast. Coronal reconstructions were made. total DLP: 216, CTDI7.4 FINDINGS: The lung bases are clear. Assessment of the solid organs is limited due to lack of IV contrast. The liver is borderline prominent. No evidence of focal lesions. Faint calcifications in the splenic hilum are noted, likely vascular. There are coarse calcifications along the head of the pancreas. No evidence of surrounding inflammatory changes. No focal adrenal lesions. No evidence of hydronephrosis or focal renal lesions. No evidence of renal stones. Mild atherosclerosis is noted. The appendix is unremarkable. Mild degenerative changes of the spine are noted. IMPRESSION: Limited exam due to lack of IV and oral contrast. Coarse hepatic calcifications which may be sequela of chronic pancreatitis. No evidence of surrounding inflammatory change surrounding the pancreas. Please correlate clinically. Possible sludge in the gallbladder. Ultrasound would further clarify. No evidence of hydronephrosis. Mild atherosclerotic vascular disease.
== END 2016-10-25 07:00 | disposition home or self-care (01) ==
LOC: ER 02:59
DX: F10.129 Alcohol abuse with intoxication, unspecified (principal); K29.00 Acute gastritis without bleeding; Z88.0 Allergy status to penicillin; Z59.0 Homelessness
CPT/HCPCS: 99285; 96365; 96366; 96375; 74150; 36415; 85025; 85610; 80320; 82150; 83690; 80053; J3490; J3411; J3475; J7030; X6598

== ENCOUNTER 2016-11-02 22:49 | Emergency (ER) | payer MEDICAID ==
--- NOTE | 2016-11-02 22:59 | ED Physician Chart ---
Chief Complaint/HPI - Patient Information Date Seen:: 11/02/16 Time Seen:: 22:58 Chief Complaint:: alcohol intoxication History of Present Illness:: 40-year-old male history of alcohol abuse, brought in by EMS with acute, mild to moderate, alcohol intoxication that apparently started earlier today when he started drinking alcohol. Is associated disheveled appearance. Denies any pain. Denies fevers, chest pain or palpitations, headache, acute visual changes , nausea, vomiting. Allergies:: Allergies Allergy/AdvReac Type Severity Reaction Status Date / Time Penicillins [PCN] AdvReac Verified 10/21/16 18:41 Historian:: Patient, EMS Review:: Nurse's Note Reviewed, EMS run form Reviewed Review of Systems - Review of Systems Other: Complete system review otherwise unremarkable except as noted in history of present illness. Past Medical History - Past Medical History Past Medical History: Other (history of alcohol abuse) Family History: None Social History: Non Smoker, Alcohol, No Drug Use, Other Surgical History: None Psychiatricy History: None Medication: None Family Medical History - Family Member Mother History Unknown: Yes Physical Exam - Physical Examination Other:: INITIAL VITAL SIGNS: Reviewed by me GENERAL: Alert and interactive. No acute distress. Disheveled HEAD: Head is normocephalic and atraumatic EYES: EOMI. PERRL. No scleral icterus. No conjunctival injection ENT: Moist mucous membranes. NECK: Supple. No masses. Full range of motion RESPIRATORY: No tachypnea. Clear breath sounds bilaterally. No wheezing, rales, or rhonchi CV: Regular rate and rhythm. No murmurs, rubs, or gallops ABDOMEN: Soft, non-distended, non-tender. No guarding. No rebound. No masses. EXTREMITIES: No deformity. No cyanosis. No edema. SKIN: Warm and dry. No obvious rashes. NEUROLOGIC: Alert and oriented. Face is symmetric. Speech is normal. Moves all extremities equally. Motor and sensory distally intact. ED Septic Shock - . Is Septic Shock (SBP<90, OR Lactate>4 mmol\L) present?: No Reassessment (Disposition) - Reassessment Reassessment:: This patient was brought in with some mild to moderate at alcohol intoxication. The patient's alert and oriented 4. He is walking around the emergency department without any gait abnormalities. He appears to have no acute pain. Patient was advised to follow-up with the free clinic or primary care with one 2 days. Return precautions are given. Patient says he understands and agrees with plan. Reassessment Condition:: Improved - Diagnosis Diagnosis:: Acute alcohol intoxication - Aftercare/Follow up Instructions Aftercare/Follow-Up Instructions:: Counseled pt regarding lab results/diagnosis & need follow up, Refer to Discharge Instructions - Patient Disposition Discharge/Transfer:: Home Time:: 23:50 Condition at Disposition:: Improved ED Discharge Plan - Patient Disposition Admit/Discharge/Transfer: PT DISCHARGED HOME Condition at Disposition: Improved Instructions: How Much is Too Much Alcohol, [id number]
== END 2016-11-03 04:20 | disposition home or self-care (01) ==
LOC: ER 22:49
DX: F10.129 Alcohol abuse with intoxication, unspecified (principal); Z88.0 Allergy status to penicillin; Z59.0 Homelessness
CPT/HCPCS: Z7502